=== PATIENT | female | born 1945 | race Caucasian/White ===

== ENCOUNTER 2017-09-11 08:54 | Emergency (ER) | payer OTHER ==
[~2017-09-11] VITALS: Ht 160 cm; Wt 83.0 kg
[2017-09-11] MEDS ORDERED: CHLORTHALIDONE25 MG PO (09:06)
[2017-09-11] MEDS ORDERED: LISINOPRIL20 MG PO (09:06)
[2017-09-11] MEDS ORDERED: CARVEDILOL6.25 MG (09:06)
[2017-09-11] MEDS ORDERED: CARDURA4 MG PO (09:07)
[2017-09-11 09:51] LABS: ABSOLUTE MONOCYTES 0.5 thou/uL (0.0-1.2); ABSOLUTE NEUTROPHILS 3.1 thou/uL (1.6-8.1); BASOPHILS 0.6 %; HEMATOCRIT 41.7 % (37.0-47.0); HEMOGLOBIN 14.3 gm/dL (12.0-15.0); LYMPHOCYTES 20.5 %; MCH 31.2 pg (26.0-34.0); MCHC 34.3 g/dL (28.0-37.0); MCV 91.1 fL (80.0-100.0); MONOCYTES 10.4 %; MPV 8.6 fl. (7.2-11.1); NUCLEATED RBCS 0 /100WBC; PLATELET COUNT* 222 thou/uL (150-400); POLYS 67.5 %; RBC 4.58 mil/uL (4.20-5.00); RDW-CV 13.2 % (10.5-14.5); WBC 4.7 thou/uL (4.0-11.0)
[2017-09-11 10:00] LABS: ANION GAP 9 mmol/L (7-16); BUN 14 mg/dL (7-18); CALCIUM 8.6 mg/dL (8.5-10.1); CHLORIDE 93 mmol/L (98-107); CO2 27 mmol/L (21-32); CREATININE 0.9 mg/dL (0.6-1.3); GLUCOSE 124 mg/dL (70-99); POTASSIUM 3.5 mmol/L (3.5-5.1); SODIUM 129 mmol/L (136-145)
[2017-09-11 10:12] LABS: ALBUMIN 3.5 g/dL (3.4-5.0); ALKALINE PHOSPHATASE 78 U/L (46-116); NT-PRO BRAIN NAT PEPTIDE 38 pg/mL (<300); SGOT 16 U/L (15-37); SGPT 18 U/L (30-65); TOTAL BILIRUBIN 0.4 mg/dL (<0.1-1.0); TOTAL PROTEIN 6.6 g/dL (6.4-8.2); TROPONIN-I LEVEL <0.06 ng/mL (<0.06)
[2017-09-11 10:19] LABS: PROTIME 9.8 Seconds (9.20-11.50)
[2017-09-11] MEDS ORDERED: AZITHROMYCIN 2250 MG PO (10:42)
[2017-09-11] MEDS ORDERED: MEDROL DOSPAK21 TA1 PO (10:42)
[2017-09-11 11:09] VITALS: BP 105/48
--- NOTE | 2017-09-12 16:18 | EKG ---
[place] [address] ELECTROCARDIOGRAM REPORT Name: RAHUL VANCE Room: [facility]#: [id number] Admission: 09/11/17 Attend Phys: Discharge: 09/11/17 Date of : 43 Report #: [id number] THIS REPORT FOR: //name// [facility] ED Test Date: 2017-09-11 Test Time: 09:05:25 Pat Name: RAHUL VANCE Department: Room: Gender: F Director [place] [employer]: : 1945 Requested By: Michael Reynolds Order Number: [id number] : Dylan Marcelo Measurements Intervals [place] Rate: 78 P: 72 ID: [id number] QRS: 79 QRSD: 97 T: 49 QT: 372 QTc: 424 Interpretive Statements Sinus rhythm Baseline wander in lead(s) V1,V2 No previous ECG available for comparison Electronically Signed On 09-12-2017 16:17:57 [employer] by Dylan Marcelo [email or web address] <ELECTRONICALLY SIGNED> By: yDlan Marcelo MD, [facility] 09/12/17 1617 0905 0905 Dylan Marcelo MD, FACC /EPI
== END 2017-09-11 11:10 | disposition home or self-care (01) ==
LOC: M.ERS 08:54
PROVIDERS: Emergency Medicine
DX: J40 Bronchitis, not specified as acute or chronic (principal); E78.00 Pure hypercholesterolemia, unspecified; J44.9 Chronic obstructive pulmonary disease, unspecified; F17.210 Nicotine dependence, cigarettes, uncomplicated; Z90.721 Acquired absence of ovaries, unilateral; Z91.040 Latex allergy status